=== PATIENT | male | born 1990 | race Caucasian/White ===

== ENCOUNTER 2016-05-08 18:38 | Emergency (ER) | payer OTHER | END 2016-05-08 20:24 | disposition home or self-care (01) | LOC: D.ER 18:38 | DX: R56.9 Unspecified convulsions (principal); I10 Essential (primary) hypertension ==

== ENCOUNTER 2017-07-18 18:00 | Emergency (ER) | payer OTHER ==
[2017-07-18 18:35] LABS: BASOPHILS 0.6 % (0-2); HEMATOCRIT 46.7 % (42.0-54.0); HEMOGLOBIN 15.4 g/dL (13.5-17.5); IMMATURE GRANULOCYTES 0.6 % (0-5); LYMPHOCYTES 31.2 % (15-50); MCH 29.3 pg (26.0-34.0); NEUTROPHILS 51.6 % (40-80); PLATELET COUNT 246 10x3/uL (130-400); RBC 5.25 10x6/uL (4.20-6.10); RDW 13.1 % (11.5-14.5); WBC 10.8 10x3/uL (4.8-10.8)
[2017-07-18 18:57] LABS: AMYLASE - SERUM 58 U/L (25-115); LIPASE 153 U/L (73-393)
[2017-07-18 19:00] LABS: ANION GAP 16.1 mmol/L (8-16); BILIRUBIN - TOTAL 0.4 mg/dL (0.2-1.3); CALCIUM 8.8 mg/dL (8.5-10.1); CREATININE - SERUM 1.4 mg/dL (0.6-1.3); POTASSIUM - SERUM 4.1 mmol/L (3.5-5.1); PROTEIN - SERUM 7.7 g/dL (6.4-8.2)
[2017-07-18 19:29] LABS: APPEARANCE CLEAR (CLEAR); BILIRUBIN NEGATIVE (NEGATIVE); COLOR YELLOW (YELLOW); GLUCOSE NEGATIVE (NEGATIVE); KETONE NEGATIVE (NEGATIVE); NITRITE NEGATIVE (NEGATIVE); PROTEIN NEGATIVE (NEGATIVE); SPECIFIC GRAVITY 1.015 (1.005-1.020); UROBILINOGEN NORMAL (NORMAL)
== END 2017-07-18 20:46 | disposition home or self-care (01) ==
LOC: D.ER 18:00
PROVIDERS: Family Medicine
DX: R10.31 Right lower quadrant pain (principal); K52.9 Noninfective gastroenteritis and colitis, unspecified; I10 Essential (primary) hypertension

== ENCOUNTER 2017-10-20 15:12 | Emergency (ER) | payer OTHER ==
[~2017-10-20] VITALS: Ht 185.4 cm; Wt 81.8 kg
[2017-10-20 15:16] VITALS: Ht 185.4 cm; Wt 81.8 kg
[2017-10-20 16:03] LABS: BASOPHILS 0.6 % (0-2); EOSINOPHILS 4.7 % (0-7); HEMOGLOBIN 15.6 g/dL (13.5-17.5); IMMATURE GRANULOCYTES 0.7 % (0-5); LYMPHOCYTES 24.5 % (15-50); MCHC 33.9 g/dL (31.0-37.0); MCV 88.5 fL (80.0-100.0); MEAN PLATELET VOLUME 11.3 fL (7.4-10.4); MONOCYTES 9.4 % (2-11); NEUTROPHILS 60.1 % (40-80); PLATELET COUNT 211 10x3/uL (130-400); RDW 13.9 % (11.5-14.5); WBC 10.1 10x3/uL (4.8-10.8)
[2017-10-20 16:04] LABS: APPEARANCE CLEAR (CLEAR); COLOR YELLOW (YELLOW); GLUCOSE NEGATIVE (NEGATIVE); NITRITE NEGATIVE (NEGATIVE); PROTEIN NEGATIVE (NEGATIVE)
[2017-10-20 16:05] LABS: BILIRUBIN NEGATIVE (NEGATIVE); KETONE NEGATIVE (NEGATIVE); UROBILINOGEN NORMAL (NORMAL)
[2017-10-20 16:17] LABS: ALBUMIN 3.8 g/dL (3.4-5.0); ALKALINE PHOSPHATASE 95 U/L (46-116); ALT (SGPT) 56 U/L (10-68); AMYLASE - SERUM 62 U/L (25-115); BILIRUBIN - TOTAL 0.37 mg/dL (0.2-1.3); CALC OSMOLALITY 276 mosm/kg (275-300); CALCIUM 8.5 mg/dL (8.5-10.1); CARBON DIOXIDE 26.8 mmol/L (21.0-32.0); CHLORIDE - SERUM 105 mmol/L (98-107); GLUCOSE 91 mg/dL (74-106); LIPASE 149 U/L (73-393); POTASSIUM - SERUM 3.9 mmol/L (3.5-5.1); PROTEIN - SERUM 7.5 g/dL (6.4-8.2); SODIUM 139 mmol/L (136-145); UREA NITROGEN 11 mg/dL (7-18); eGFR NON AFRICAN AMERICAN > 90 mL/min (90-120)
[2017-10-20] MEDS ORDERED: NAPROSYN500 MG PO (18:24)
[2017-10-20 18:59] VITALS: BP 140/92
[2017-10-24 03:44] LABS: CHLAMYDIA TRACHOMATIS, NAA Negative (Negative)
== END 2017-10-20 18:59 | disposition home or self-care (01) ==
LOC: D.ER 15:12
PROVIDERS: Family Medicine
DX: R10.31 Right lower quadrant pain (principal); R30.0 Dysuria

== ENCOUNTER 2018-05-04 14:11 | Emergency (ER) | payer MEDICAID ==
[~2018-05-04] VITALS: Ht 185.4 cm; Wt 104.5 kg
[~2018-05-04 14:11] MED LIST: NAPROSYN500 MG PO
[2018-05-04 14:20] VITALS: Ht 185.4 cm; Wt 104.5 kg
[2018-05-04] MEDS ORDERED: LOSARTAN-HCTZ1 EAC2 PO (14:21)
[2018-05-04] MEDS ORDERED: PROTONIX40 MG PO (14:21)
[2018-05-04] MEDS ORDERED: BUPRENORPHIN-N1 EACH SL (14:22)
[2018-05-04 17:02] LABS: BASOPHILS 0.4 % (0-2); EOSINOPHILS 4.1 % (0-7); HEMOGLOBIN 13.4 g/dL (13.5-17.5); IMMATURE GRANULOCYTES 0.1 % (0-5); LYMPHOCYTES 30.6 % (15-50); MCH 28.6 pg (26.0-34.0); MCHC 33.5 g/dL (31.0-37.0); MCV 85.5 fL (80.0-100.0); MEAN PLATELET VOLUME 11.1 fL (7.4-10.4); MONOCYTES 8.5 % (2-11); NEUTROPHILS 56.3 % (40-80); PLATELET COUNT 216 10x3/uL (130-400); RBC 4.68 10x6/uL (4.20-6.10); RDW 12.9 % (11.5-14.5); WBC 8.1 10x3/uL (4.8-10.8)
[2018-05-04 17:18] LABS: APPEARANCE CLEAR (CLEAR); BILIRUBIN NEGATIVE (NEGATIVE); COLOR YELLOW (YELLOW); GLUCOSE NEGATIVE (NEGATIVE); KETONE NEGATIVE (NEGATIVE); NITRITE NEGATIVE (NEGATIVE); PROTEIN NEGATIVE (NEGATIVE); UROBILINOGEN NORMAL (NORMAL)
[2018-05-04 17:24] VITALS: BP 127/89
[2018-05-04 17:28] LABS: ALBUMIN 3.7 g/dL (3.4-5.0); ALKALINE PHOSPHATASE 90 U/L (46-116); ALT (SGPT) 51 U/L (10-68); BILIRUBIN - TOTAL 0.22 mg/dL (0.2-1.3); CALC OSMOLALITY 281 mosm/kg (275-300); CALCIUM 8.7 mg/dL (8.5-10.1); CARBON DIOXIDE 32.8 mmol/L (21.0-32.0); CHLORIDE - SERUM 103 mmol/L (98-107); GLUCOSE 98 mg/dL (74-106); MAGNESIUM - SERUM 1.8 mg/dL (1.8-2.4); PROTEIN - SERUM 7.1 g/dL (6.4-8.2); SODIUM 142 mmol/L (136-145); UREA NITROGEN 10 mg/dL (7-18); eGFR NON AFRICAN AMERICAN > 90 mL/min (90-120)
[2018-05-04 17:29] LABS: UDS - AMPHET NEGATIVE QUAL (NEGATIVE); UDS - BARB NEGATIVE QUAL (NEGATIVE); UDS - BENZO NEGATIVE QUAL (NEGATIVE); UDS - COCAINE NEGATIVE QUAL (NEGATIVE); UDS - OPIATE NEGATIVE QUAL (NEGATIVE); UDS - PCP NEGATIVE QUAL (NEGATIVE); UDS - THC NEGATIVE QUAL (NEGATIVE)
== END 2018-05-04 17:26 | disposition home or self-care (01) ==
LOC: D.ER 14:11
PROVIDERS: Family Medicine
DX: Z76.0 Encounter for issue of repeat prescription (principal); F11.23 Opioid dependence with withdrawal; G40.909 Epilepsy, unspecified, not intractable, without status epilepticus; I10 Essential (primary) hypertension